=== PATIENT | male | born 1960 | race Caucasian/White ===

== ENCOUNTER 2019-08-06 18:44 | Emergency (ER) | payer BC ==
[~2019-08-06] VITALS: Ht 172.7 cm; Wt 85.5 kg
[2019-08-06 19:28] LABS: BASO # 0.1 (0.0-0.2); BASO % 0.8 % (0.0-2.0); EOS # 0.2 (0.0-0.7); EOS % 1.7 % (0-4.0); GRAN # 5.1 (1.4-6.5); GRAN % 58.1 % (42.2-75.2); HEMOGLOBIN 17.8 g/dl (13.5-18.0); LYMPH # 2.6 (1.2-3.4); LYMPH % 29.8 % (20.0-51.0); MEAN CELL VOLUME 93 fl (80.0-100.0); MEAN CORPUSCULAR HEMOGLOBIN 31 pg (27.0-31.0); MEAN CORPUSCULAR HGB CONC 34 g/dl (33.0-37.0); MEAN PLATELET VOLUME 10.9 fl (7.4-10.4); MONO # 0.8 (0.1-0.6); MONO % 9.3 % (1.7-9.3); PLATELET COUNT 213 K/mm3 (130-400); REDCELL DISTRIBUTION WIDTH-CV 12.8 % (11.5-14.5)
[2019-08-06 19:39] LABS: ALANINE AMINOTRANSFERASE 37 U/L (21-72); ALBUMIN 4.9 gm/dL (3.5-5.0); ALKALINE PHOSPHATASE 103 U/L (50-136); ANION GAP 8 mmol/L (7-16); AST,SGOT 40 U/L (15-37); BILIRUBIN,TOTAL 0.5 mg/dL (0.0-1.0); BLOOD UREA NITROGEN 18 mg/dL (9-20); CARBON DIOXIDE 29 mmol/L (22-30); CHLORIDE 103 mmol/L (98-107); CREATININE, serum 1.05 (0.66-1.25); GLUCOSE 91 mg/dL (74-106); POTASSIUM 4.2 mmol/L (3.4-5.0); SODIUM 140 mmol/L (137-145); TOTAL PROTEIN 8.9 gm/dL (6.4-8.2)
[2019-08-06 19:52] LABS: TROPONIN-I < 0.012 ng/mL (0.000-0.035)
[2019-08-06] MEDS ORDERED: PRINZIDE 12.5 M1 TAB PO (20:19)
[2019-08-06 20:29] VITALS: BP 139/90; PULSE 72; TEMP 98.4
== END 2019-08-06 20:33 | disposition home or self-care (01) ==
LOC: COL.ER 18:44
PROVIDERS: Emergency Medicine
DX: I10 Essential (primary) hypertension (principal); H93.13 Tinnitus, bilateral; E78.5 Hyperlipidemia, unspecified